=== PATIENT | female | born 1960 | race Caucasian/White ===

== ENCOUNTER → 2017-11-21 | Outpatient (CLI) | payer BC | END | disposition home or self-care (01) | LOC: NM 09:27 | DX: I10 Essential (primary) hypertension (principal); R07.9 Chest pain, unspecified | CPT/HCPCS: 78452; 93017; 96374; 96376; A9500 ==

== ENCOUNTER → 2021-03-24 | Outpatient (CLI) | payer BC ==
[2021-03-24 15:06] LABS: BASO # 0.1 x10^3/uL (0.0-0.2); BASO % 1 % (0-3); EOS # 0.1 x10^3/uL (0.0-0.7); EOS % 3 % (0-3); HEMATOCRIT 43.8 % (36.0-47.0); HEMOGLOBIN 15.1 g/dL (12.0-15.5); LYMPH # 1.1 x10^3/uL (1.0-4.8); LYMPH % 21 % (24-48); MEAN CORPUSCULAR HEMOGLOBIN 31 pg (25-35); MEAN CORPUSCULAR HGB CONC 35 g/dL (31-37); MEAN CORPUSCULAR VOLUME 89 fL (79-100); MONO # 0.4 x10^3/uL (0.0-1.1); MONO % 9 % (0-9); NEUT # 3.2 x10^3/uL (1.8-7.7); PLATELET COUNT 86 x10^3/uL (140-400); RED BLOOD COUNT 4.91 x10^6/uL (3.50-5.40); RED CELL DISTRIBUTION WIDTH 12.9 % (11.5-14.5); WHITE BLOOD COUNT 4.9 x10^3/uL (4.0-11.0)
[2021-03-24 15:23] LABS: CALCIUM 10.5 mg/dL (8.5-10.1); CREATININE 0.6 mg/dL (0.6-1.0); POTASSIUM 4.3 mmol/L (3.5-5.1)
[2021-03-24 15:29] LABS: ALBUMIN 4.4 g/dL (3.4-5.0); ALBUMIN/GLOBULIN RATIO 1.5 (1.0-1.7); TOTAL BILIRUBIN 0.5 mg/dL (0.2-1.0); TOTAL PROTEIN 7.4 g/dL (6.4-8.2)
[2021-03-24 15:56] LABS: THYROID STIM HORMONE (TSH) 0.801 uIU/mL (0.358-3.74)
[2021-03-24 17:09] LABS: PLT ESTIMATE DECREASED (ADEQUATE); POLYCHROMASIA SLIGHT
[2021-03-26 10:19] LABS: NEUT % 66 % (31-73)
[2021-03-29 18:09] LABS: METHYLMALONIC ACID 117 nmol/L (0-378)
== END ==
LOC: ONCLAB 14:07
PROVIDERS: ATTEND Internal Medicine Hematology & Oncology
DX: D69.6 Thrombocytopenia, unspecified (principal); I10 Essential (primary) hypertension; E55.9 Vitamin D deficiency, unspecified
CPT/HCPCS: 36415; 80053; 82525; 82607; 82746; 83010; 83615; 83921; 84439; 84443; 85025; 86703; 86803

== ENCOUNTER → 2021-09-02 | Outpatient (CLI) | payer BC ==
--- NOTE | 2021-09-02 16:03 | RAD ---
EXAM: Left inguinal sonogram. HISTORY: Swelling. Hernia. TECHNIQUE: Sonographic imaging of the left inguinal region at the site of palpable concern was perfor med. COMPARISON: None. FINDINGS: There is a small suspected fat-containing left inguinal hernia. There is a 2.1 cm lymph nod e benign morphology within the left inguinal region. There is no suspicious mass. IMPRESSION: Suspected small fat-containing left inguinal hernia. Electronically signed by: Pooja Cline MD (09/02/2021 4:01 PM) [id number]
== END ==
LOC: US 15:14
PROVIDERS: ATTEND Family Medicine
DX: D36.0 Benign neoplasm of lymph nodes (principal); K41.90 Unilateral femoral hernia, without obstruction or gangrene, not specified as recurrent; R19.09 Other intra-abdominal and pelvic swelling, mass and lump
CPT/HCPCS: 76881

== ENCOUNTER → 2021-10-05 | Day surgery (SDC) | payer BC ==
[~2021-10-05] VITALS: Ht 162.6 cm; Wt 69.0 kg
[~2021-10-05] MED LIST: ALEN70TA3 PO; BUPIVACAINE-EPI 0.5% 30 ML VIAL KIT. ONE; CRESTOR5 MG PO; DEXAMETHASONE SOD PHOS 4 MG/ML VIAL ONE; HYDR-2761 PO; HYDROcodone/APAP 5/325MG 1 TAB TABLET PO ONE; HYDROmorphone 2 MG/ML VIAL IVP PRN; IV RINGERS,LACTATED 1000ML 1,000 ML IV SCH; KETOROLAC 30 MG/ML VIAL. ONE; LIDOCAINE 2% PF 5 ML VIAL. ONE; LISI10TA16 PO; MIDAZOLAM HCL/PF 2 MG/2 ML VIAL. ONE; MORPHINE SULFATE 2 MG/ML INJ. IVP PRN; MULT-245 PO; ONDANSETRON PF 4 MG/2 ML VIAL. ONE; PROCHLORPERAZINE 10 MG/2 ML VIAL. IVP PRN; PROPOFOL 10 MG/ML (20ML) VIAL. IV ONE; SEVOFLURANE 61 TO 120 MINUTES. IH ONE; ceFAZolin SODIUM IV Push 1 GM VIAL. IVP PRN; ePHEDrine PF IN SALINE 50 MG/10 ML SYRINGE. IV ONE; fentaNYL PF VIAL 100 MCG/2 ML VIAL IVP PRN; fentaNYL PF VIAL 100 MCG/2 ML VIAL ONE; vitamin d SQ
[2021-10-05 11:18] VITALS: BP 141/71
[2021-10-05 11:28] LABS: HEMATOCRIT 44.9 % (36.0-47.0); HEMOGLOBIN 15.1 g/dL (12.0-15.5); RED BLOOD COUNT 4.94 x10^6/uL (3.50-5.40); RED CELL DISTRIBUTION WIDTH 12.9 % (11.5-14.5); WHITE BLOOD COUNT 3.9 x10^3/uL (4.0-11.0)
--- NOTE | 2021-10-05 13:26 | PDOC4 ---
Operative Note Operative Note Operative Note: Preoperative Diagnosis: Left inguinal hernia Postoperative Diagnosis: Same Procedure: Left inguinal hernia repair with mesh Surgeon: Nacho Dip Lube Operator: Dylan Reece Anesthesia: General EBL: 10 mL Specimen: None Drains: None Complications: None Indication: The patient is a 61-year-old female who is referred with a suspected left inguinal hernia. A sonogram confirmed a small fat-containing hernia which was also suspected on exam. She was offered surgical repair. The risks of surgery were discussed which include bleeding, infection, recurrence, pain, anesthetic risk, potential need for additional surgery procedure. She understands and would like to proceed. Description: The patient was taken to the operating room and placed supine in the operating table. General anesthesia was performed. The left groin was shaved and prepped with ChloraPrep and draped with sterile towels, sheets, and an Ioban. An incision was made in the skin lines with a scalpel. Cautery dissection was carried down to the external bleak aponeurosis. The aponeurosis was opened down to the external ring. The round ligament and rudimentary structures were doubly ligated and excised. There was no sizable direct hernia defect. There appeared to be some dilation with protrusion of fat through the internal ring. The protruding fat was reduced and the defect filled with a medium sized Phasix mesh plug. The plug was sutured into position with 2-0 Vicryl. The inguinal floor was then reinforced with a Prolene mesh patch. The mesh was sutured in position with 2-0 Vicryl. The external oblique was closed over the mesh with 2-0 Vicryl. Subcutaneous tissue was approximated with 3-0 Vicryl. Skin was closed with 4-0 Monocryl. The incision was infiltrated with half percent Marcaine with epinephrine. Steri-Strips and a sterile dressing were applied. The patient tolerated the procedure well and was sent to the recovery room in stable condition. At the end of the case all counts were correct. OSMANY RAMIREZ MD Oct 05, 2021 13:26
--- NOTE | 2021-10-05 13:31 | DISCH ---
DISCHARGE INSTRUCTIONS Condition on Discharge Condition on Discharge: Stable Activity After Discharge Activity Instructions for Disc: Other, see below (No lifting over 20 lbs, s trenuous activity X 4 weeks) Diet after Discharge Diet after Discharge: Regular Wound Incision Care Wound/Incision Care: Other, see below (keep dressing clean and dry X 72 hours, may then remove and shower) Follow-Up Follow up with: Dr Ramirez in office in 2 weeks, call for appointment [phone] OSMANY RAMIREZ MD Oct 05, 2021 13:30
[2021-10-05 14:44] VITALS: BP 119/56
== END | disposition home or self-care (01) ==
LOC: SURG 10:33
PROVIDERS: ATTEND Surgery
DX: K40.90 Unilateral inguinal hernia, without obstruction or gangrene, not specified as recurrent (principal); I10 Essential (primary) hypertension; E78.00 Pure hypercholesterolemia, unspecified; E03.9 Hypothyroidism, unspecified; M19.90 Unspecified osteoarthritis, unspecified site; Z79.899 Other long term (current) drug therapy; Z98.890 Other specified postprocedural states; Z72.89 Other problems related to lifestyle
CPT/HCPCS: 36415; 49505; 85027; 86850; 86900; 86901; A4364; A4930; A6402; C1781; J0690; J1100; J1885; J2250; J2405; J2704; J3010; A4452